=== PATIENT | female | born 1990 | race Caucasian/White ===

== ENCOUNTER 2018-10-01 12:23 | Observation (INO) | payer OTHER ==
[2018-10-01 12:34] VITALS: BMI 29.2
[2018-10-01 13:24] LABS: BASO % 0.3 % (0-2.0); EOS % 0.2 % (0-4.5); HEMATOCRIT 34.4 % (32.4-45.2); HEMOGLOBIN 11.4 GM/dL (10.7-15.3); MCH 25.7 pg (25.7-33.7); MCHC 33.1 g/dl (32.0-36.0); MEAN CELL VOLUME 77.8 fl (80-96); MEAN PLT VOLUME 11.3 fl (7.5-11.1); NEUT % 91.5 % (42.8-82.8); PLATELET COUNT 282 K/MM3 (134-434); RBC 4.42 M/mm3 (3.60-5.2); RDW 19.3 % (11.6-15.6); WHITE BLOOD COUNT 11.4 K/mm3 (4.0-10.0)
--- NOTE | 2018-10-01 13:29 | PDOC ---
History of Present Illness - General Chief Complaint: Nausea/Vomiting Stated Complaint: VOMITTING/ABDOMINAL PAIN Time Seen by Provider: 10/01/18 12:58 History Source: Patient Exam Limitations: No Limitations - History of Present Illness Initial Comments: 10/01/18 15:39 27 yo F with a hx of GERD and gastric sleeve in 2016 presents to the emergency department with sudden onset of nausea and vomiting that awoke the patient. Per the patient, she states she ate a pork quesadilla with one glass of bourbon last night at approximately 8pm. The patient went to bed without symptoms. Currently, she is having epigastric pain that radiates throughout the abdomen with associative nausea and vomiting (NBNB, 12+ episodes). The pain is dull and is 10/10. Endorses the following: diarrhea and fever. LMP was last week. Denies the following: headache, visual changes, ears/nose/throat pain and congestion, dysuria, hematuria, vaginal pain/discharge/bleeding, diarrhea, hematochezia, and melena. No leg pain or swelling. PMHX: GERD Shx: gastric sleeve 2016, appendectomy 2017 Meds: none Social: Denies tobacco use. Endorses alcohol and marijuana use. Past History - Past Medical History Allergies/Adverse Reactions: Allergies Allergy/AdvReac Type Severity Reaction Status Date / Time No Known Allergies Allergy Verified 10/01/18 12:31 Home Medications: Ambulatory Orders NK [No Known Home Medication] 10/01/18 COPD: No - Surgical History Appendectomy: Yes Gastric Stapling: Yes (sleeve) - Suicide/Smoking/Psychosocial Hx Smoking History: Never smoked Have you smoked in the past 12 months: No Information on smoking cessation initiated: No Hx Alcohol Use: No Drug/Substance Use Hx: No Review of Systems - Review of Systems Able to Perform ROS?: Yes Is the patient limited Uzbek proficient: No Constitutional: Yes: Fever, Weakness HEENTM: No: Eye Pain, Recent change in vision, Ear Pain, Nose Pain, Throat Pain , Mouth Pain Respiratory: No: Cough, Shortness of Breath, SOB with Exertion, Hemoptysis Cardiac (ROS): No: Chest Pain, Lightheadedness, Palpitations, Syncope, Chest Tightness ABD/GI: Yes: Diarrhea, Nausea, Poor Appetite, Poor Fluid Intake, Vomiting, Abdominal cramping. No: Constipated, Rectal Bleeding, Indigestion, Tarry Stools : No: Burning, Dysuria, Hematuria, Urgency Musculoskeletal: No: Back Pain, Joint Pain, Neck Pain Integumentary: No: Erythema, Lesions, Rash, Sweating Neurological: No: Headache, Numbness, Tingling, Tremors, Dizziness Psychiatric: No: Stressors Endocrine: No: Unexplained Weight Gain Hematologic/Lymphatic: No: Anemia *Physical Exam - Vital Signs Last Vital Signs Temp Pulse Resp BP Pulse Ox 98.1 F 66 18 113/53 L 100 10/01/18 12:31 10/01/18 12:31 10/01/18 12:31 10/01/18 12:31 10/01/18 12:31 - Physical Exam General Appearance: Yes: Nourished, Appropriately Dressed, Mild Distress, Other (actively vomiting and retching on exam). No: Alcohol on Breath, Intoxicated HEENT: positive: EOMI, TUNDE, Normal Voice, Symmetrical, Pharyngeal Erythema, Hearing Grossly Normal. negative: Pharynx Normal, Scleral Icterus (R), Scleral Icterus (L), Tonsillar Exudate, Tonsillar Erythema, Nasal Congestion, Sinus Tenderness, Excessive drooling Neck: positive: Trachea midline. negative: Tender, Lymphadenopathy (R), Lymphadenopathy (L), Tender lateral, Tender midline Respiratory/Chest: positive: Lungs Clear, Normal Breath Sounds. negative: Chest Tender, Respiratory Distress, Accessory Muscle Use, Rales, Rhonchi, Stridor, Wheezing Cardiovascular: positive: Regular Rhythm, Regular Rate, S1, S2, Systolic Murmur (grade 1) Gastrointestinal/Abdominal: positive: Tender (LUQ and epigastric pain on tenderness), Flat, Soft, Increased Bowel Sounds. negative: Guarding Lymphatic: negative: Adenopathy Musculoskeletal: positive: Normal Inspection. negative: CVA Tenderness, Vertebral Tenderness Extremity: positive: Normal Capillary Refill, Normal Inspection, Normal Range of Motion. negative: Tender Integumentary: positive: Normal Color, Dry, Warm Neurologic: positive: lace sewer II-XII NML intact, Fully Oriented, Alert, Normal Mood/ Affect, Normal Response, Motor Strength 5/5. negative: EOM Palsy, Sensory Deficit Moderate Sedation - Procedure Monitoring Vital Signs: Procedure Monitoring Vital Signs Temperature 98.1 F 10/01/18 12:31 Pulse Rate 66 10/01/18 12:31 Respiratory Rate 18 10/01/18 12:31 Blood Pressure 113/53 L 10/01/18 12:31 O2 Sat by Pulse Oximetry (%) 100 10/01/18 12:31 Heart Score/ECG Review - ECG Intrepretation Comment:: 10/01/18 19:12 ventricular rate 53 bpm, WA is 140 ms, QRS is 84, QTc is 459 ms. Sinus arrhythmia bradycardia. No st elevations or depressions, ED Treatment Course - LABORATORY CBC & Chemistry Diagram: 10/01/18 13:15 10/01/18 13:15 Medical Decision Making - Medical Decision Making 27 yo F with a hx of GERD and gastric sleeve in 2016 presents to the emergency department with sudden onset of nausea and vomiting that awoke the patient. Initial vitals: Initial Vital Signs Temp Pulse Resp BP Pulse Ox 98.1 F 66 18 113/53 L 100 10/01/18 12:31 10/01/18 12:31 10/01/18 12:31 10/01/18 12:31 10/01/18 12:31 Work up: ddx: gastric sleeve complications (bowel obstruction, mechanical obstruction due to adhesions?) vs gastritis vs GERD vs viral gastroenteritis vs colitis vs pancreatitis vs cholecystits Laboratory Tests 10/01/18 10/01/18 10/01/18 13:06 13:06 13:15 WBC 11.4 H RBC 4.42 Hgb 11.4 Hct 34.4 MCV 77.8 L MCH 25.7 MCHC 33.1 RDW 19.3 H Plt Count 282 MPV 11.3 H Absolute Neuts (auto) 10.4 H Neutrophils % 91.5 H Neutrophils % (Manual) 86.3 H Band Neutrophils % 3.9 Lymphocytes % 5.0 L Lymphocytes % (Manual) 4.9 L Monocytes % 3.0 L Monocytes % (Manual) 4 Eosinophils % 0.2 Eosinophils % (Manual) 0.0 Basophils % 0.3 Basophils % (Manual) 0.0 Myelocytes % (Man) 0 Promyelocytes % (Man) 0 Blast Cells % (Manual) 0 Nucleated RBC % 0 Metamyelocytes 0 Hypochromia 0 Platelet Estimate Normal Platelet Comment Present Polychromasia 1+ Poikilocytosis 1+ Anisocytosis 1+ Microcytosis 1+ Macrocytosis 0 Spherocytes 2+ Tear Drop Cells 2+ Ovalocytes 2+ Acanthocytes (Spur) 1+ Rouleaux 1+ PT with INR INR PTT (Actin FS) Sodium Potassium Chloride Carbon Dioxide Anion Gap BUN Creatinine Creat Clearance w eGFR Random Glucose Lactic Acid Calcium Phosphorus Magnesium Total Bilirubin AST ALT Alkaline Phosphatase Total Protein Albumin Lipase Urine Color Ltyellow Urine Appearance Clear Urine pH 6.0 Ur Specific [place] 1.028 Urine Protein 1+ H Urine Glucose (UA) 1+ H Urine Ketones 2+ H Urine Blood 2+ H Urine Nitrite Negative Urine Bilirubin Negative Urine Urobilinogen Negative Ur Leukocyte Esterase Negative Urine WBC (Auto) 1 Urine RBC (Auto) None Ur Epithelial Cells Rare Urine Mucus Few Urine HCG, Qual Negative Blood Type Antibody Screen 10/01/18 10/01/18 10/01/18 13:15 13:15 13:15 WBC RBC Hgb Hct MCV MCH MCHC RDW Plt Count MPV Absolute Neuts (auto) Neutrophils % Neutrophils % (Manual) Band Neutrophils % Lymphocytes % Lymphocytes % (Manual) Monocytes % Monocytes % (Manual) Eosinophils % Eosinophils % (Manual) Basophils % Basophils % (Manual) Myelocytes % (Man) Promyelocytes % (Man) Blast Cells % (Manual) Nucleated RBC % Metamyelocytes Hypochromia Platelet Estimate Platelet Comment Polychromasia Poikilocytosis Anisocytosis Microcytosis Macrocytosis Spherocytes Tear Drop Cells Ovalocytes Acanthocytes (Spur) Rouleaux PT with INR INR PTT (Actin FS) Sodium Cancelled 138 Potassium Cancelled 3.7 Chloride Cancelled 107 Carbon Dioxide Cancelled 19 L Anion Gap Cancelled 11 BUN Cancelled 15 Creatinine Cancelled 0.9 Creat Clearance w eGFR Cancelled > 60 Random Glucose Cancelled 127 H Lactic Acid Calcium Cancelled 8.9 Phosphorus 1.8 L Magnesium Cancelled 2.0 Total Bilirubin Cancelled 0.5 AST Cancelled 20 ALT Cancelled 18 Alkaline Phosphatase Cancelled 69 Total Protein Cancelled 7.9 Albumin Cancelled 3.8 Lipase Cancelled 146 Urine Color Urine Appearance Urine pH Ur Specific [place] Urine Protein Urine Glucose (UA) Urine Ketones Urine Blood Urine Nitrite Urine Bilirubin Urine Urobilinogen Ur Leukocyte Esterase Urine WBC (Auto) Urine RBC (Auto) Ur Epithelial Cells Urine Mucus Urine HCG, Qual Blood Type Antibody Screen 10/01/18 10/01/18 10/01/18 14:15 14:15 14:15 WBC RBC Hgb Hct MCV MCH MCHC RDW Plt Count MPV Absolute Neuts (auto) Neutrophils % Neutrophils % (Manual) Band Neutrophils % Lymphocytes % Lymphocytes % (Manual) Monocytes % Monocytes % (Manual) Eosinophils % Eosinophils % (Manual) Basophils % Basophils % (Manual) Myelocytes % (Man) Promyelocytes % (Man) Blast Cells % (Manual) Nucleated RBC % Metamyelocytes Hypochromia Platelet Estimate Platelet Comment Polychromasia Poikilocytosis Anisocytosis Microcytosis Macrocytosis Spherocytes Tear Drop Cells Ovalocytes Acanthocytes (Spur) Rouleaux PT with INR 13.10 H INR 1.11 H PTT (Actin FS) 25.7 Sodium Potassium Chloride Carbon Dioxide Anion Gap BUN Creatinine Creat Clearance w eGFR Random Glucose Lactic Acid 1.6 Calcium Phosphorus Magnesium Total Bilirubin AST ALT Alkaline Phosphatase Total Protein Albumin Lipase Urine Color Urine Appearance Urine pH Ur Specific [place] Urine Protein Urine Glucose (UA) Urine Ketones Urine Blood Urine Nitrite Urine Bilirubin Urine Urobilinogen Ur Leukocyte Esterase Urine WBC (Auto) Urine RBC (Auto) Ur Epithelial Cells Urine Mucus Urine HCG, Qual Blood Type O POSITIVE Antibody Screen Negative CT abdomen and pelvis shows no evidence of acute abdominopelvic pathology. nonobstructive nephrolithiasis (negative CVA tenderness on exam) noted on the upper pole of the right kidney. post surgical changes noted with no evidence of bowel obstruction or perforation. No oral contrast because patient could not tolerate PO. 10/01/18 19:05 Patient was reassessed at 6:50 pm. After 1 mg of ativan, 2.5 mg of haldol, 4 mg of zofran x2, 1 gram of acetaminophen, and NS fluids, the patient still has intractable nausea and vomiting the water on PO challenge with continued, but improved abdominal pain. Now described the pain as 4/10. Will admit patient to obs for intractable N/V with abdominal pain. *DC/Admit/Observation/Transfer Diagnosis at time of Disposition: Nausea and vomiting Qualifiers: Vomiting type: unspecified Vomiting Intractability: intractable Qualified Code( s): R11.2 - Nausea with vomiting, unspecified - Referrals - Patient Instructions - Post Discharge Activity
[2018-10-01] MEDS ORDERED: ACETAMINOPHEN 1000 MG/100 ML VIAL (NON FORMULARY) IVPB ONE (13:30)
[2018-10-01] MEDS ORDERED: ONDANSETRON 4 MG/2 ML VIAL IVPUSH ONE ×2 (13:30→15:36)
[2018-10-01] MEDS ORDERED: FAMOTIDINE 20 MG/50 ML IVPB 20 MG/50 ML MG IVPB ONE ×2 (13:30→13:33)
[2018-10-01] MEDS ORDERED: SODIUM CHLORIDE 1,000 ML IV STA ×2 (13:30→20:23)
[2018-10-01] MEDS ORDERED: ONDANSETRON 4 MG/2 ML VIAL ONE ×3 (13:33→23:13)
[2018-10-01] MEDS ORDERED: ACETAMINOPHEN INJECTION 100 ML IVPB ONE (13:33)
[2018-10-01 14:06] LABS: ALBUMIN 3.8 g/dl (3.4-5.0); ALK PHOS 69 U/L (45-117); ANION GAP 11 MMOL/L (8-16); BILIRUBIN,TOTAL 0.5 mg/dL (0.2-1); BLOOD UREA NITROGEN 15 mg/dL (7-18); CALCIUM 8.9 mg/dL (8.5-10.1); CHLORIDE 107 mmol/L (98-107); CO2 19 mmol/L (21-32); CREATININE 0.9 mg/dL (0.55-1.3); GLUCOSE,RANDOM 127 mg/dL (74-106); LIPASE 146 U/L (73-393); PHOSPHOROUS 1.8 mg/dL (2.5-4.9); POTASSIUM 3.7 mmol/L (3.5-5.1); SGOT/AST 20 U/L (15-37); SGPT/ALT 18 U/L (13-61); SODIUM 138 mmol/L (136-145); TOT PROT 7.9 g/dl (6.4-8.2)
[2018-10-01 14:48] LABS: INR 1.11 (0.83-1.09); PROTHROMBIN TIME (PATIENT) 13.1 SEC (9.7-13.0)
[2018-10-01 14:50] LABS: ACTIVATED PTT 25.7 SECONDS (25.2-36.5)
[2018-10-01 15:06] LABS: ACANTHOCYTES 1+; ANISOCYTOSIS 1+; MACROCYTOSIS 0; OVALOCYTE 2+; PLATELET ESTIMATE NORMAL; ROULEAU 1+; TEAR DROP CELLS 2+
[2018-10-01 15:32] LABS: URINE APPEARANCE CLEAR; URINE BILIRUBIN NEGATIVE (<2.0 mg/dL); URINE COLOR LTYELLOW; URINE GLUCOSE (UA) 1+ (NEGATIVE); URINE KETONE 2+ (NEGATIVE); URINE LEUK ESTERASE NEGATIVE (NEGATIVE); URINE NITRITE NEGATIVE (NEGATIVE); URINE PROTEIN 1+ (NEGATIVE); URINE UROBILINOGEN NEGATIVE mg/dL (0.2-1.0)
[2018-10-01] MEDS ORDERED: HALOPERIDOL LACTATE 5 MG/ML IM ONE (15:36)
--- NOTE | 2018-10-01 15:38 | EKG ---
Test Reason : Blood Pressure : / mmHG Vent. Rate : 053 BPM Atrial Rate : 053 BPM P-R Int : 140 ms QRS Dur : 084 ms QT Int : 490 ms P-R-T Axes : 034 036 043 degrees QTc Int : 459 ms SINUS BRADYCARDIA WITH SINUS ARRHYTHMIA OTHERWISE NORMAL ECG NO PREVIOUS ECGS AVAILABLE Confirmed by SHAREE SPENCER, CARO ([id number]) on 10/01/2018 3:38:38 PM Referred By: Confirmed By:CARO TOLLIVER MD
[2018-10-01] MEDS ORDERED: HALOPERIDOL LACTATE 5 MG/ML ONE (15:50)
[2018-10-01 16:13] LABS: EPI CELLS RARE /HPF (FEW); URINE MUCUS FEW
[2018-10-01] MEDS ORDERED: LORazepam 2 MG/ML SDV VIAL ONE (16:17)
--- NOTE | 2018-10-01 16:33 | PDOC ---
Attending Attestation - Resident Resident Name: Krystian Khoury - ED Attending Attestation I have performed the following: I have examined & evaluated the patient, The case was reviewed & discussed with the resident, I agree w/resident's findings & plan, Exceptions are as noted - HPI HPI: 10/01/18 16:31 27 F with h/o sleeve gastrectomy 2016 presenting with 1 day of abdominal pain and nausea. Pt states that she had an alcoholic drink last night with pork quesadillas. This morning, pt started experiencing severe epigastric pain with several episodes of N+V. Pt denies F/C. Denies diarrhea/constipation. last BM was 2 hours ago, normal. Pt has not had symptoms like this before. - Physicial Exam PE: 10/01/18 16:32 "GENERAL: Awake, alert, and fully oriented, in no acute distress. HEAD: No signs of trauma EYES: PERRLA, EOMI, sclera anicteric, conjunctiva clear ENT: Auricles normal inspection, hearing grossly normal, nares patent, oropharynx clear without exudates. Moist mucosa NECK: Nontender, no stepoffs, Normal ROM, supple, no lymphadenopathy, JVD, or masses LUNGS: Breath sounds equal, clear to auscultation bilaterally. No wheezes, and no crackles HEART: Regular rate and rhythm, normal S1 and S2, no murmurs, rubs or gallops ABDOMEN: + epigastric TTP, nondistended, normoactive bowel sounds. No guarding , no rebound. No masses EXTREMITIES: Normal range of motion, no edema. No clubbing or cyanosis. No cords, erythema, or tenderness NEUROLOGICAL: Cranial nerves II through XII intact. 5/5 strength and sensation in all extremities, Normal speech, normal gait, normal cerebellar function SKIN: Warm, Dry, normal turgor, no rashes or lesions noted. - Medical Decision Making 10/01/18 16:32 27 F with epigastric pain, N+V. No sign of obstruction on exam. Suspect gastritis vs pancreatitis. Consider complication from sleeve gastrectomy, though surgery was in 2016. Pt also admits to smoking marijuana occasionally, consider cannabanoid hyperemesis syndrome. - Labs, lipase - CTAP - IVF, gi cocktail
--- NOTE | 2018-10-01 19:54 | PDOC ---
*Physical Exam - Vital Signs Last Vital Signs Temp Pulse Resp BP Pulse Ox 98.1 F 79 17 105/65 98 10/01/18 12:31 10/01/18 16:39 10/01/18 16:39 10/01/18 16:39 10/01/18 16:39 ED Treatment Course - LABORATORY CBC & Chemistry Diagram: 10/01/18 13:15 10/01/18 13:15 - ADDITIONAL ORDERS Additional order review: Laboratory Results 10/01/18 10/01/18 10/01/18 14:15 14:15 14:15 PT with INR 13.10 H INR 1.11 H PTT (Actin FS) 25.7 Sodium Potassium Chloride Carbon Dioxide Anion Gap BUN Creatinine Creat Clearance w eGFR Random Glucose Lactic Acid 1.6 Calcium Phosphorus Magnesium Total Bilirubin AST ALT Alkaline Phosphatase Total Protein Albumin Lipase Urine Color Urine Appearance Urine pH Ur Specific [place] Urine Protein Urine Glucose (UA) Urine Ketones Urine Blood Urine Nitrite Urine Bilirubin Urine Urobilinogen Ur Leukocyte Esterase Urine WBC (Auto) Urine RBC (Auto) Ur Epithelial Cells Urine Mucus Urine HCG, Qual Blood Type O POSITIVE Antibody Screen Negative 10/01/18 10/01/18 10/01/18 13:15 13:15 13:15 PT with INR INR PTT (Actin FS) Sodium 138 Cancelled Potassium 3.7 Cancelled Chloride 107 Cancelled Carbon Dioxide 19 L Cancelled Anion Gap 11 Cancelled BUN 15 Cancelled Creatinine 0.9 Cancelled Creat Clearance w eGFR > 60 Cancelled Random Glucose 127 H Cancelled Lactic Acid Calcium 8.9 Cancelled Phosphorus 1.8 L Magnesium 2.0 Cancelled Total Bilirubin 0.5 Cancelled AST 20 Cancelled ALT 18 Cancelled Alkaline Phosphatase 69 Cancelled Total Protein 7.9 Cancelled Albumin 3.8 Cancelled Lipase 146 Cancelled Urine Color Urine Appearance Urine pH Ur Specific [place] Urine Protein Urine Glucose (UA) Urine Ketones Urine Blood Urine Nitrite Urine Bilirubin Urine Urobilinogen Ur Leukocyte Esterase Urine WBC (Auto) Urine RBC (Auto) Ur Epithelial Cells Urine Mucus Urine HCG, Qual Blood Type Antibody Screen 10/01/18 10/01/18 13:06 13:06 PT with INR INR PTT (Actin FS) Sodium Potassium Chloride Carbon Dioxide Anion Gap BUN Creatinine Creat Clearance w eGFR Random Glucose Lactic Acid Calcium Phosphorus Magnesium Total Bilirubin AST ALT Alkaline Phosphatase Total Protein Albumin Lipase Urine Color Ltyellow Urine Appearance Clear Urine pH 6.0 Ur Specific [place] 1.028 Urine Protein 1+ H Urine Glucose (UA) 1+ H Urine Ketones 2+ H Urine Blood 2+ H Urine Nitrite Negative Urine Bilirubin Negative Urine Urobilinogen Negative Ur Leukocyte Esterase Negative Urine WBC (Auto) 1 Urine RBC (Auto) None Ur Epithelial Cells Rare Urine Mucus Few Urine HCG, Qual Negative Blood Type Antibody Screen 10/01/18 13:15 RBC 4.42 MCV 77.8 L MCHC 33.1 RDW 19.3 H MPV 11.3 H Neutrophils % 91.5 H Lymphocytes % 5.0 L Monocytes % 3.0 L Eosinophils % 0.2 Basophils % 0.3 - Medications Given in the ED: ED Medications Discontinued Medications Generic Name Dose Route Start Last Admin Trade Name Freq PRN Reason Stop Dose Admin Acetaminophen 1,000 mg 10/01/18 13:30 10/01/18 13:42 Ofirmev Injection - IVPB 10/01/18 13:31 1,000 mg ONCE ONE Administration Haloperidol 2.5 mg 10/01/18 15:36 10/01/18 15:57 Haldol Injection (Fast Acting) - IM 10/01/18 15:37 2.5 mg ONCE ONE Administration Famotidine/Sodium Chloride 20 mg in 50 mls @ 100 mls/hr 10/01/18 13:30 13:42 Pepcid 20 Mg Premixed Ivpb - IVPB 10/01/18 13:59 100 mls/hr ONCE ONE Administration Sodium Chloride 1,000 mls @ 1,000 mls/hr 10/01/18 13:30 10/01/18 13:41 Normal Saline - IV 10/01/18 14:29 1,000 mls/hr ASDIR STA Administration Lorazepam 1 mg 10/01/18 16:17 10/01/18 16:24 Ativan Injection - IVPUSH 10/01/18 16:18 1 mg ONCE ONE Administration Ondansetron HCl 4 mg 10/01/18 13:30 10/01/18 13:42 Zofran Injection IVPUSH 10/01/18 13:31 4 mg ONCE ONE Administration Ondansetron HCl 4 mg 10/01/18 15:36 10/01/18 15:57 Zofran Injection IVPUSH 10/01/18 15:37 4 mg ONCE ONE Administration Medical Decision Making - Medical Decision Making 10/01/18 19:53 Case d/w Dr Acosta Murphy. Accepted to med surg obs. *DC/Admit/Observation/Transfer Diagnosis at time of Disposition: Nausea and vomiting Qualifiers: Vomiting type: unspecified Vomiting Intractability: intractable Qualified Code( s): R11.2 - Nausea with vomiting, unspecified - Discharge Dispostion Condition at time of disposition: Decision to Admit order: Yes - Referrals - Patient Instructions - Post Discharge Activity
--- NOTE | 2018-10-01 20:05 | PN ---
Teaching Attending Note Name of Resident: Acosta Murphy ATTENDING PHYSICIAN STATEMENT I saw and evaluated the patient. I reviewed the resident's note and discussed the case with the resident. I agree with the resident's findings and plan as documented. SUBJECTIVE: Patient is a 27 year old woman with a hx of GERD, appendectomy and gastric sleeve in 2016 presents to the emergency department with sudden onset of nausea and vomiting that awoke the patient. Per the patient, she states she ate a pork quesadilla with one glass of bourbon last night at approximately 8pm. The patient went to bed without symptoms. Currently, she is having epigastric pain that radiates throughout the abdomen with associative nausea and vomiting (NBNB , 12+ episodes). The pain is dull and is 10/10. Endorses the following: diarrhea and fever. LMP was last week. Denies the following: headache, visual changes, ears/nose/throat pain and congestion, dysuria, hematuria, vaginal pain/ discharge/bleeding, diarrhea, hematochezia, and melena. No leg pain or swelling. OBJECTIVE: Somnolent but arousable Vital Signs Period Temp Pulse Resp BP Sys/Johns Pulse Ox Last 24 Hr 98.1 F 66-79 17-18 105-113/53-65 98-100 HEENT: No Jaundice, eye redness or discharge, PERRLA, EOMI. Normocephalic, atraumatic. External ears are normal and hearing is grossly intact. No nasal discharge. Neck: Supple, nontender. No palpable adenopathy or thyromegaly. No JVD Chest: Good effort. Clear to auscultation and percussion. Heart: Regular. No S3, rub or murmur Abdomen: Not distended, soft, tender upper abdomen and no HSM. No rebound or guarding. Normoactive bowel sounds. Ext: Peripheral pulses intact. No leg edema. Skin: Warm and dry. No petechiae, rash or ecchymosis. Neuro: Somnolent. Oriented x3. CN 2-12 grossly intact. Sensation grossly intact in all four extremities and DTR are symmetric. Current Medications Generic Name Dose Route Start Last Admin Trade Name Freq PRN Reason Stop Dose Admin Sodium Chloride 1,000 mls @ 1,000 mls/hr 10/01/18 20:23 Normal Saline - IV 10/01/18 21:22 ASDIR STA Home Medications Medication Instructions Recorded NK [No Known Home Medication] 10/01/18 Abnormal Lab Results 10/01/18 10/01/18 10/01/18 13:06 13:15 13:15 WBC 11.4 H MCV 77.8 L RDW 19.3 H MPV 11.3 H Absolute Neuts (auto) 10.4 H Neutrophils % 91.5 H Neutrophils % (Manual) 86.3 H Lymphocytes % 5.0 L Lymphocytes % (Manual) 4.9 L Monocytes % 3.0 L PT with INR INR Carbon Dioxide 19 L Random Glucose 127 H Phosphorus 1.8 L Urine Protein 1+ H Urine Glucose (UA) 1+ H Urine Ketones 2+ H Urine Blood 2+ H 10/01/18 14:15 WBC MCV RDW MPV Absolute Neuts (auto) Neutrophils % Neutrophils % (Manual) Lymphocytes % Lymphocytes % (Manual) Monocytes % PT with INR 13.10 H INR 1.11 H Carbon Dioxide Random Glucose Phosphorus Urine Protein Urine Glucose (UA) Urine Ketones Urine Blood ASSESSMENT AND PLAN: 1. Abdominal pain and intractable vomiting - Admits to smoking marijuana, but unclear if she used synthetic marijuana. No significant abnormality on CT abdomen. Alcoholic gastritis is the other possible culprit. She has starvation ketosis. Got one liter bolus IV NS. Will give another I liter bolus and then D5NS at 150/hour. Treat with IV zofran, protonix and if necessary reglan. Get serum test, EKG, HbA1c, urine toxicology and give neutraphos once she can tolerate PO. Repeat UA once she is stable in view of hematuria. Patient counseled to stop smoking marijuana. 2. Alcohol abuse - Implement [facility] alcohol withdrawal protocol, fall and aspiration precautions. Treat with thiamine and folic acid and monitor electrolytes (Ca,Mg,K,P). In Service Coordinator patient about abstaining from alcohol and refer to alcohol detox upon discharge. 3. DVT prophylaxis - Lovenox 40 mg SQ q 24 hours. 4. Advance directives - Full code
[2018-10-01] MEDS ORDERED: ONDANSETRON 4 MG/2 ML VIAL IVPUSH PRN (21:13)
--- NOTE | 2018-10-01 21:14 | HP ---
CHIEF COMPLAINT: vomiting PCP: n/a HISTORY OF PRESENT ILLNESS: Patient is a 27yo F with pmhx of GERD, s/p gastric sleeve 2015, presented with complaints of sudden nausea and NBNB vomiting that woke her up at 6am this morning with associated 10/10, cramping, diffuse abdominal pain. She said last night she had 1 cup of bourbon on the rocks. Her last meal was last night which she had pork quesadillas. Patient currently has no abdominal pain but still endorses nausea and vomiting over 15 times. She denies fever, diarrhea, headache, chills, hematochezia, dysuria, or weight changes. ER course was notable for: (1) intractable vomiting in ED (2) 1mg Ativan, 2.5mg Haldol, Zofran x 2 (3) CT abd: unremarkable Recent Travel: n/a PAST MEDICAL HISTORY: per hpi PAST SURGICAL HISTORY: per hpi Social History: Smoking: marijuana, denies tobacco Alcohol: occasionally Drugs: denies (except marijuana) Family History: n/a Allergies No Known Allergies Allergy (Verified 10/01/18 12:31) HOME MEDICATIONS: Home Medications Medication Instructions Recorded NK [No Known Home Medication] 10/01/18 REVIEW OF SYSTEMS CONSTITUTIONAL: loss of appetite Absent: fever, chills, diaphoresis, generalized weakness, malaise, weight change HEENT: Absent: rhinorrhea, nasal congestion, throat pain, throat swelling, difficulty swallowing, mouth swelling, ear pain, eye pain, visual changes CARDIOVASCULAR: Absent: chest pain, syncope, palpitations, irregular heart rate, lightheadedness , peripheral edema RESPIRATORY: Absent: cough, shortness of breath, dyspnea with exertion, orthopnea, wheezing, stridor, hemoptysis GASTROINTESTINAL: abdominal pain, nausea, vomiting Absent: abdominal distension, diarrhea, constipation, melena, hematochezia GENITOURINARY: Absent: dysuria, frequency, urgency, hesitancy, hematuria, flank pain, genital pain MUSCULOSKELETAL: Absent: myalgia, arthralgia, joint swelling, back pain, neck pain SKIN: Absent: rash, itching, pallor HEMATOLOGIC/IMMUNOLOGIC: Absent: easy bleeding, easy bruising, lymphadenopathy, frequent infections ENDOCRINE: Absent: unexplained weight gain, unexplained weight loss, heat intolerance, cold intolerance NEUROLOGIC: Absent: headache, focal weakness or paresthesias, dizziness, unsteady gait, seizure, mental status changes, bladder or bowel incontinence PSYCHIATRIC: Absent: anxiety, depression, suicidal or homicidal ideation, hallucinations. PHYSICAL EXAMINATION Vital Signs - 24 hr 10/01/18 10/01/18 12:31 16:39 Temperature 98.1 F Pulse Rate 66 Pulse Rate [ 79 Apical] Respiratory 18 17 Rate Blood Pressure 113/53 L Blood Pressure 105/65 [Right Arm] O2 Sat by Pulse 100 98 Oximetry (%) GENERAL: lethargic (given ativan, haldol) HEAD: Normal with no signs of trauma. EYES: Pupils equal, round and reactive to light, sclera anicteric, conjunctiva clear. EARS, NOSE, THROAT: Ears normal, nares patent, oropharynx clear without exudates. dry mucous membranes. NECK: supple without lymphadenopathy, JVD, or masses. LUNGS: Breath sounds equal, clear to auscultation bilaterally. HEART: Regular rate and rhythm, normal S1 and S2 without murmur, rub or gallop. ABDOMEN: Soft, nontender, not distended, hypoactive bowel sounds, no guarding, no rebound, no masses. LOWER EXTREMITIES: 2+ pulses, warm, well-perfused. No calf tenderness. No peripheral edema. NEUROLOGICAL: Cranial nerves II-XII intact. Normal speech. Laboratory Results - last 24 hr 10/01/18 10/01/18 10/01/18 13:06 13:06 13:15 WBC 11.4 H RBC 4.42 Hgb 11.4 Hct 34.4 MCV 77.8 L MCH 25.7 MCHC 33.1 RDW 19.3 H Plt Count 282 MPV 11.3 H Absolute Neuts (auto) 10.4 H Neutrophils % 91.5 H Neutrophils % (Manual) 86.3 H Band Neutrophils % 3.9 Lymphocytes % 5.0 L Lymphocytes % (Manual) 4.9 L Monocytes % 3.0 L Monocytes % (Manual) 4 Eosinophils % 0.2 Eosinophils % (Manual) 0.0 Basophils % 0.3 Basophils % (Manual) 0.0 Myelocytes % (Man) 0 Promyelocytes % (Man) 0 Blast Cells % (Manual) 0 Nucleated RBC % 0 Metamyelocytes 0 Hypochromia 0 Platelet Estimate Normal Platelet Comment Present Polychromasia 1+ Poikilocytosis 1+ Anisocytosis 1+ Microcytosis 1+ Macrocytosis 0 Spherocytes 2+ Tear Drop Cells 2+ Ovalocytes 2+ Acanthocytes (Spur) 1+ Rouleaux 1+ PT with INR INR PTT (Actin FS) Sodium Potassium Chloride Carbon Dioxide Anion Gap BUN Creatinine Creat Clearance w eGFR Random Glucose Lactic Acid Calcium Phosphorus Magnesium Total Bilirubin AST ALT Alkaline Phosphatase Total Protein Albumin Lipase Urine Color Ltyellow Urine Appearance Clear Urine pH 6.0 Ur Specific [place] 1.028 Urine Protein 1+ H Urine Glucose (UA) 1+ H Urine Ketones 2+ H Urine Blood 2+ H Urine Nitrite Negative Urine Bilirubin Negative Urine Urobilinogen Negative Ur Leukocyte Esterase Negative Urine WBC (Auto) 1 Urine RBC (Auto) None Ur Epithelial Cells Rare Urine Mucus Few Urine HCG, Qual Negative Blood Type Antibody Screen 10/01/18 10/01/18 10/01/18 13:15 13:15 13:15 WBC RBC Hgb Hct MCV MCH MCHC RDW Plt Count MPV Absolute Neuts (auto) Neutrophils % Neutrophils % (Manual) Band Neutrophils % Lymphocytes % Lymphocytes % (Manual) Monocytes % Monocytes % (Manual) Eosinophils % Eosinophils % (Manual) Basophils % Basophils % (Manual) Myelocytes % (Man) Promyelocytes % (Man) Blast Cells % (Manual) Nucleated RBC % Metamyelocytes Hypochromia Platelet Estimate Platelet Comment Polychromasia Poikilocytosis Anisocytosis Microcytosis Macrocytosis Spherocytes Tear Drop Cells Ovalocytes Acanthocytes (Spur) Rouleaux PT with INR INR PTT (Actin FS) Sodium Cancelled 138 Potassium Cancelled 3.7 Chloride Cancelled 107 Carbon Dioxide Cancelled 19 L Anion Gap Cancelled 11 BUN Cancelled 15 Creatinine Cancelled 0.9 Creat Clearance w eGFR Cancelled > 60 Random Glucose Cancelled 127 H Lactic Acid Calcium Cancelled 8.9 Phosphorus 1.8 L Magnesium Cancelled 2.0 Total Bilirubin Cancelled 0.5 AST Cancelled 20 ALT Cancelled 18 Alkaline Phosphatase Cancelled 69 Total Protein Cancelled 7.9 Albumin Cancelled 3.8 Lipase Cancelled 146 Urine Color Urine Appearance Urine pH Ur Specific [place] Urine Protein Urine Glucose (UA) Urine Ketones Urine Blood Urine Nitrite Urine Bilirubin Urine Urobilinogen Ur Leukocyte Esterase Urine WBC (Auto) Urine RBC (Auto) Ur Epithelial Cells Urine Mucus Urine HCG, Qual Blood Type Antibody Screen 10/01/18 10/01/18 10/01/18 14:15 14:15 14:15 WBC RBC Hgb Hct MCV MCH MCHC RDW Plt Count MPV Absolute Neuts (auto) Neutrophils % Neutrophils % (Manual) Band Neutrophils % Lymphocytes % Lymphocytes % (Manual) Monocytes % Monocytes % (Manual) Eosinophils % Eosinophils % (Manual) Basophils % Basophils % (Manual) Myelocytes % (Man) Promyelocytes % (Man) Blast Cells % (Manual) Nucleated RBC % Metamyelocytes Hypochromia Platelet Estimate Platelet Comment Polychromasia Poikilocytosis Anisocytosis Microcytosis Macrocytosis Spherocytes Tear Drop Cells Ovalocytes Acanthocytes (Spur) Rouleaux PT with INR 13.10 H INR 1.11 H PTT (Actin FS) 25.7 Sodium Potassium Chloride Carbon Dioxide Anion Gap BUN Creatinine Creat Clearance w eGFR Random Glucose Lactic Acid 1.6 Calcium Phosphorus Magnesium Total Bilirubin AST ALT Alkaline Phosphatase Total Protein Albumin Lipase Urine Color Urine Appearance Urine pH Ur Specific [place] Urine Protein Urine Glucose (UA) Urine Ketones Urine Blood Urine Nitrite Urine Bilirubin Urine Urobilinogen Ur Leukocyte Esterase Urine WBC (Auto) Urine RBC (Auto) Ur Epithelial Cells Urine Mucus Urine HCG, Qual Blood Type O POSITIVE Antibody Screen Negative ASSESSMENT/PLAN: 7yo F with pmhx of GERD, s/p gastric sleeve 2015, presented with intractable NBNB vomiting. #Intractable Vomiting -marijuana use vs gastroenteritis -IV fluids. 1 liter given in ER -Give another Liter bolus NS, then D5 @ 150 -serum -No significant abnormality on CT abdomen -Zofran PRN #FEN -IV fluids -monitor -NPO #DVT -SCDs Dispo: Obs Visit type - Emergency Visit Emergency Visit: Yes ED Registration Date: 10/01/18 Care time: The patient presented to the Emergency Department on the above date and was hospitalized for further evaluation of their emergent condition. - New Patient This patient is new to me today: Yes Date on this admission: 10/02/18 - Critical Care Critical Care patient: No
[2018-10-01 22:11] LABS: COCAINE, UR NEGATIVE ng/ml (CUTOFF=300); METHADONE, UR NEGATIVE ng/ml (CUTOFF=300); OPIATES, URI NEGATIVE ng/ml (CUTOFF=300); PHENCYCLIDINE,URINE NEGATIVE ng/ml (CUTOFF=25); URINE AMPHETAMINES NEGATIVE ng/ml (CUTOFF=500); URINE BARBITURATES NEGATIVE ng/ml (CUTOFF=200); URINE BENZODIAZEPINES NEGATIVE ng/ml (CUTOFF=200)
[2018-10-02 07:14] LABS: BASO % 0.4 % (0-2.0); EOS % 0.1 % (0-4.5); HEMATOCRIT 31.1 % (32.4-45.2); HEMOGLOBIN 9.7 GM/dL (10.7-15.3); LYMPH % 15.5 % (8-40); MCH 24.7 pg (25.7-33.7); MCHC 31.3 g/dl (32.0-36.0); MEAN PLT VOLUME 10.8 fl (7.5-11.1); MONO % 7.2 % (3.8-10.2); NEUT % 76.8 % (42.8-82.8); PLATELET COUNT 180 K/MM3 (134-434); RBC 3.94 M/mm3 (3.60-5.2); RDW 19.3 % (11.6-15.6); WHITE BLOOD COUNT 6.5 K/mm3 (4.0-10.0)
[2018-10-02] MEDS ORDERED: DEXTROSE 5%-WATER - 1,000 ML IV SCH (07:15)
[2018-10-02 08:50] LABS: ALBUMIN 3.2 g/dl (3.4-5.0); ALK PHOS 60 U/L (45-117); ANION GAP 10 MMOL/L (8-16); BILIRUBIN,TOTAL 0.4 mg/dL (0.2-1); BLOOD UREA NITROGEN 7 mg/dL (7-18); CALCIUM 8.4 mg/dL (8.5-10.1); CHLORIDE 109 mmol/L (98-107); CO2 21 mmol/L (21-32); CREATININE 0.7 mg/dL (0.55-1.3); GLUCOSE,RANDOM 75 mg/dL (74-106); MAGNESIUM 2.1 mg/dL (1.8-2.4); PHOSPHOROUS 3.4 mg/dL (2.5-4.9); POTASSIUM 3.4 mmol/L (3.5-5.1); SGOT/AST 20 U/L (15-37); SGPT/ALT 22 U/L (13-61); SODIUM 140 mmol/L (136-145); TOT PROT 6.7 g/dl (6.4-8.2)
[2018-10-02] MEDS ORDERED: PANTOPRAZOLE SODIUM 40 MG VIAL IVPUSH SCH (10:00)
--- NOTE | 2018-10-02 10:11 | PN ---
Physical Exam: SUBJECTIVE: Patient seen and examined, no further nausea, vomiting or abdominal pain, tolerated liquid diet well this morning. OBJECTIVE: Vital Signs Period Temp Pulse Resp BP Sys/Johns Pulse Ox Last 24 Hr 97.5 F-98.5 F 63-79 16-20 92-113/44-72 96-100 GENERAL: The patient is awake, alert, and fully oriented, in no acute distress. HEAD: Normal with no signs of trauma. EYES: PERRL, extraocular movements intact, sclera anicteric, conjunctiva clear. No ptosis. ENT: Ears normal, nares patent, oropharynx clear without exudates, moist mucous membranes. NECK: Trachea midline, full range of motion, supple. LUNGS: Breath sounds equal, clear to auscultation bilaterally, no wheezes, no crackles, no accessory muscle use. HEART: Regular rate and rhythm, S1, S2 ABDOMEN: Soft, nontender, nondistended, normoactive bowel sounds, no guarding, no rebound EXTREMITIES: 2+ pulses, warm, well-perfused, no edema. PSYCH: Normal mood, normal affect. SKIN: Warm, dry, normal turgor, no rashes or lesions noted Laboratory Results - last 24 hr 10/01/18 10/01/18 10/01/18 13:06 13:06 13:15 WBC 11.4 H RBC 4.42 Hgb 11.4 Hct 34.4 MCV 77.8 L MCH 25.7 MCHC 33.1 RDW 19.3 H Plt Count 282 MPV 11.3 H Absolute Neuts (auto) 10.4 H Neutrophils % 91.5 H Neutrophils % (Manual) 86.3 H Band Neutrophils % 3.9 Lymphocytes % 5.0 L Lymphocytes % (Manual) 4.9 L Monocytes % 3.0 L Monocytes % (Manual) 4 Eosinophils % 0.2 Eosinophils % (Manual) 0.0 Basophils % 0.3 Basophils % (Manual) 0.0 Myelocytes % (Man) 0 Promyelocytes % (Man) 0 Blast Cells % (Manual) 0 Nucleated RBC % 0 Metamyelocytes 0 Hypochromia 0 Platelet Estimate Normal Platelet Comment Present Polychromasia 1+ Poikilocytosis 1+ Anisocytosis 1+ Microcytosis 1+ Macrocytosis 0 Spherocytes 2+ Tear Drop Cells 2+ Ovalocytes 2+ Acanthocytes (Spur) 1+ Rouleaux 1+ PT with INR INR PTT (Actin FS) Sodium Potassium Chloride Carbon Dioxide Anion Gap BUN Creatinine Creat Clearance w eGFR Random Glucose Lactic Acid Calcium Phosphorus Magnesium Total Bilirubin AST ALT Alkaline Phosphatase Total Protein Albumin Lipase Urine Color Ltyellow Urine Appearance Clear Urine pH 6.0 Ur Specific [place] 1.028 Urine Protein 1+ H Urine Glucose (UA) 1+ H Urine Ketones 2+ H Urine Blood 2+ H Urine Nitrite Negative Urine Bilirubin Negative Urine Urobilinogen Negative Ur Leukocyte Esterase Negative Urine WBC (Auto) 1 Urine RBC (Auto) None Ur Epithelial Cells Rare Urine Mucus Few Urine HCG, Qual Negative Opiates Screen Methadone Screen Barbiturate Screen Phencyclidine Screen Ur Amphetamines Screen MDMA (Ecstasy) Screen Benzodiazepines Screen Cocaine Screen U Marijuana (THC) Screen Blood Type Antibody Screen 10/01/18 10/01/18 10/01/18 13:15 13:15 13:15 WBC RBC Hgb Hct MCV MCH MCHC RDW Plt Count MPV Absolute Neuts (auto) Neutrophils % Neutrophils % (Manual) Band Neutrophils % Lymphocytes % Lymphocytes % (Manual) Monocytes % Monocytes % (Manual) Eosinophils % Eosinophils % (Manual) Basophils % Basophils % (Manual) Myelocytes % (Man) Promyelocytes % (Man) Blast Cells % (Manual) Nucleated RBC % Metamyelocytes Hypochromia Platelet Estimate Platelet Comment Polychromasia Poikilocytosis Anisocytosis Microcytosis Macrocytosis Spherocytes Tear Drop Cells Ovalocytes Acanthocytes (Spur) Rouleaux PT with INR INR PTT (Actin FS) Sodium Cancelled 138 Potassium Cancelled 3.7 Chloride Cancelled 107 Carbon Dioxide Cancelled 19 L Anion Gap Cancelled 11 BUN Cancelled 15 Creatinine Cancelled 0.9 Creat Clearance w eGFR Cancelled > 60 Random Glucose Cancelled 127 H Lactic Acid Calcium Cancelled 8.9 Phosphorus 1.8 L Magnesium Cancelled 2.0 Total Bilirubin Cancelled 0.5 AST Cancelled 20 ALT Cancelled 18 Alkaline Phosphatase Cancelled 69 Total Protein Cancelled 7.9 Albumin Cancelled 3.8 Lipase Cancelled 146 Urine Color Urine Appearance Urine pH Ur Specific [place] Urine Protein Urine Glucose (UA) Urine Ketones Urine Blood Urine Nitrite Urine Bilirubin Urine Urobilinogen Ur Leukocyte Esterase Urine WBC (Auto) Urine RBC (Auto) Ur Epithelial Cells Urine Mucus Urine HCG, Qual Opiates Screen Methadone Screen Barbiturate Screen Phencyclidine Screen Ur Amphetamines Screen MDMA (Ecstasy) Screen Benzodiazepines Screen Cocaine Screen U Marijuana (THC) Screen Blood Type Antibody Screen 10/01/18 10/01/18 10/01/18 14:15 14:15 14:15 WBC RBC Hgb Hct MCV MCH MCHC RDW Plt Count MPV Absolute Neuts (auto) Neutrophils % Neutrophils % (Manual) Band Neutrophils % Lymphocytes % Lymphocytes % (Manual) Monocytes % Monocytes % (Manual) Eosinophils % Eosinophils % (Manual) Basophils % Basophils % (Manual) Myelocytes % (Man) Promyelocytes % (Man) Blast Cells % (Manual) Nucleated RBC % Metamyelocytes Hypochromia Platelet Estimate Platelet Comment Polychromasia Poikilocytosis Anisocytosis Microcytosis Macrocytosis Spherocytes Tear Drop Cells Ovalocytes Acanthocytes (Spur) Rouleaux PT with INR 13.10 H INR 1.11 H PTT (Actin FS) 25.7 Sodium Potassium Chloride Carbon Dioxide Anion Gap BUN Creatinine Creat Clearance w eGFR Random Glucose Lactic Acid 1.6 Calcium Phosphorus Magnesium Total Bilirubin AST ALT Alkaline Phosphatase Total Protein Albumin Lipase Urine Color Urine Appearance Urine pH Ur Specific [place] Urine Protein Urine Glucose (UA) Urine Ketones Urine Blood Urine Nitrite Urine Bilirubin Urine Urobilinogen Ur Leukocyte Esterase Urine WBC (Auto) Urine RBC (Auto) Ur Epithelial Cells Urine Mucus Urine HCG, Qual Opiates Screen Methadone Screen Barbiturate Screen Phencyclidine Screen Ur Amphetamines Screen MDMA (Ecstasy) Screen Benzodiazepines Screen Cocaine Screen U Marijuana (THC) Screen Blood Type O POSITIVE Antibody Screen Negative 10/01/18 10/02/18 10/02/18 21:40 06:00 06:00 WBC 6.5 RBC 3.94 Hgb 9.7 L Hct 31.1 L MCV 79.0 L MCH 24.7 L MCHC 31.3 L RDW 19.3 H Plt Count 180 D MPV 10.8 Absolute Neuts (auto) 5.0 Neutrophils % 76.8 Neutrophils % (Manual) Band Neutrophils % Lymphocytes % 15.5 D Lymphocytes % (Manual) Monocytes % 7.2 D Monocytes % (Manual) Eosinophils % 0.1 Eosinophils % (Manual) Basophils % 0.4 Basophils % (Manual) Myelocytes % (Man) Promyelocytes % (Man) Blast Cells % (Manual) Nucleated RBC % 0 Metamyelocytes Hypochromia Platelet Estimate Platelet Comment Polychromasia Poikilocytosis Anisocytosis Microcytosis Macrocytosis Spherocytes Tear Drop Cells Ovalocytes Acanthocytes (Spur) Rouleaux PT with INR INR PTT (Actin FS) Sodium 140 Potassium 3.4 L Chloride 109 H Carbon Dioxide 21 Anion Gap 10 BUN 7 Creatinine 0.7 Creat Clearance w eGFR > 60 Random Glucose 75 Lactic Acid Calcium 8.4 L Phosphorus 3.4 Magnesium 2.1 Total Bilirubin 0.4 AST 20 ALT 22 Alkaline Phosphatase 60 Total Protein 6.7 Albumin 3.2 L Lipase Urine Color Urine Appearance Urine pH Ur Specific [place] Urine Protein Urine Glucose (UA) Urine Ketones Urine Blood Urine Nitrite Urine Bilirubin Urine Urobilinogen Ur Leukocyte Esterase Urine WBC (Auto) Urine RBC (Auto) Ur Epithelial Cells Urine Mucus Urine HCG, Qual Opiates Screen Negative Methadone Screen Negative Barbiturate Screen Negative Phencyclidine Screen Negative Ur Amphetamines Screen Negative MDMA (Ecstasy) Screen Negative Benzodiazepines Screen Negative Cocaine Screen Negative U Marijuana (THC) Screen Positive A* Blood Type Antibody Screen Active Medications Generic Name Dose Route Start Last Admin Trade Name Freq PRN Reason Stop Dose Admin Ondansetron HCl 4 mg 10/01/18 21:13 10/01/18 23:27 Zofran Injection IVPUSH 4 mg Q6H PRN Administration NAUSEA Pantoprazole Sodium 40 mg 10/02/18 10:00 10/02/18 09:30 Protonix Iv IVPUSH 40 mg DAILY BERNY Administration Potassium Chloride 40 meq 10/02/18 10:15 K-Dur - PO 10/02/18 10:16 ONCE ONE ASSESSMENT/PLAN: 27 yof with Pmhx of GERD, gastric sleeve 2015 admitted with nausea, vomiting, in the setting of having burbon/pork/marihuana -Intractable nausea/vomiting, cyclical vomiting from cannabis use, vs mild gastritis from ETOH vs food poisoning -Anemia, suspect from hemodilution (was dehydrated on admission) -GERD -Gastric sleeve 2015 Plan: tolerating liquids, advance to solids. Start PPI, d/c IVF. repeat h/h this afternoon. Follow up official CT A/P read. Suspect patient has underlying anemia, was hemoconcentrated on admission. Will need iron panel/GI follow up D/c later today if tolerating diet well and h/h stable with outpatient GI follow up Plan discussed with patient and nursing in detail, all questions answered. Visit type - Emergency Visit Emergency Visit: Yes ED Registration Date: 10/01/18 Care time: The patient presented to the Emergency Department on the above date and was hospitalized for further evaluation of their emergent condition. - New Patient This patient is new to me today: Yes Date on this admission: 10/02/18 - Critical Care Critical Care patient: No - Discharge Referral Referred to [facility] No
[2018-10-02] MEDS ORDERED: POTASSIUM CHLORIDE TABS 20 MEQ TABLET.ER (FP) PO ONE ×2 (10:15→16:15)
[2018-10-02 12:42] LABS: HEMATOCRIT 32.6 % (32.4-45.2); MCH 24.5 pg (25.7-33.7); MCHC 30.7 g/dl (32.0-36.0); MEAN CELL VOLUME 79.7 fl (80-96); MEAN PLT VOLUME 11.1 fl (7.5-11.1); PLATELET COUNT 182 K/MM3 (134-434); RBC 4.09 M/mm3 (3.60-5.2); RDW 19.2 % (11.6-15.6); WHITE BLOOD COUNT 4.8 K/mm3 (4.0-10.0)
--- NOTE | 2018-10-02 14:44 | DS ---
Physical Exam: SUBJECTIVE: Patient seen and examined, tolerating diet well, no further nausea/ vomiting or abdominal pain. eager to go home. No dark or bloody stools. OBJECTIVE: Vital Signs Period Temp Pulse Resp BP Sys/Johns Pulse Ox Last 24 Hr 97.5 F-98.5 F 63-79 16-20 92-112/44-72 96-98 PHYSICAL EXAM GENERAL: The patient is awake, alert, and fully oriented, in no acute distress. HEAD: Normal with no signs of trauma. EYES: PERRL, extraocular movements intact, sclera anicteric, conjunctiva clear. ENT: Ears normal, nares patent, oropharynx clear without exudates, moist mucous membranes. NECK: Trachea midline, full range of motion, supple. LUNGS: Breath sounds equal, clear to auscultation bilaterally, no wheezes, no crackles, no accessory muscle use. HEART: Regular rate and rhythm, S1, S2 ABDOMEN: Soft, nontender, nondistended, normoactive bowel sounds, no guarding, no rebound, no hepatosplenomegaly, no masses. EXTREMITIES: 2+ pulses, warm, well-perfused, no edema. NEUROLOGICAL: Cranial nerves II through XII grossly intact. Normal speech, gait not observed. PSYCH: Normal mood, normal affect. SKIN: Warm, dry, normal turgor, no rashes or lesions noted. LABS Laboratory Results - last 24 hr 10/01/18 10/01/18 10/01/18 13:06 13:06 13:15 WBC RBC Hgb Hct MCV MCH MCHC RDW Plt Count MPV Absolute Neuts (auto) Neutrophils % Neutrophils % (Manual) 86.3 H Band Neutrophils % 3.9 Lymphocytes % Lymphocytes % (Manual) 4.9 L Monocytes % Monocytes % (Manual) 4 Eosinophils % Eosinophils % (Manual) 0.0 Basophils % Basophils % (Manual) 0.0 Myelocytes % (Man) 0 Promyelocytes % (Man) 0 Blast Cells % (Manual) 0 Nucleated RBC % Metamyelocytes 0 Hypochromia 0 Platelet Estimate Normal Platelet Comment Present Polychromasia 1+ Poikilocytosis 1+ Anisocytosis 1+ Microcytosis 1+ Macrocytosis 0 Spherocytes 2+ Tear Drop Cells 2+ Ovalocytes 2+ Acanthocytes (Spur) 1+ Rouleaux 1+ PT with INR INR PTT (Actin FS) Sodium Potassium Chloride Carbon Dioxide Anion Gap BUN Creatinine Creat Clearance w eGFR Random Glucose Lactic Acid Calcium Phosphorus Magnesium Total Bilirubin AST ALT Alkaline Phosphatase Total Protein Albumin Urine Color Ltyellow Urine Appearance Clear Urine pH 6.0 Ur Specific Galva 1.028 Urine Protein 1+ H Urine Glucose (UA) 1+ H Urine Ketones 2+ H Urine Blood 2+ H Urine Nitrite Negative Urine Bilirubin Negative Urine Urobilinogen Negative Ur Leukocyte Esterase Negative Urine WBC (Auto) 1 Urine RBC (Auto) None Ur Epithelial Cells Rare Urine Mucus Few Urine HCG, Qual Negative Opiates Screen Methadone Screen Barbiturate Screen Phencyclidine Screen Ur Amphetamines Screen MDMA (Ecstasy) Screen Benzodiazepines Screen Cocaine Screen U Marijuana (THC) Screen Blood Type Antibody Screen 10/01/18 10/01/18 10/01/18 14:15 14:15 14:15 WBC RBC Hgb Hct MCV MCH MCHC RDW Plt Count MPV Absolute Neuts (auto) Neutrophils % Neutrophils % (Manual) Band Neutrophils % Lymphocytes % Lymphocytes % (Manual) Monocytes % Monocytes % (Manual) Eosinophils % Eosinophils % (Manual) Basophils % Basophils % (Manual) Myelocytes % (Man) Promyelocytes % (Man) Blast Cells % (Manual) Nucleated RBC % Metamyelocytes Hypochromia Platelet Estimate Platelet Comment Polychromasia Poikilocytosis Anisocytosis Microcytosis Macrocytosis Spherocytes Tear Drop Cells Ovalocytes Acanthocytes (Spur) Rouleaux PT with INR 13.10 H INR 1.11 H PTT (Actin FS) 25.7 Sodium Potassium Chloride Carbon Dioxide Anion Gap BUN Creatinine Creat Clearance w eGFR Random Glucose Lactic Acid 1.6 Calcium Phosphorus Magnesium Total Bilirubin AST ALT Alkaline Phosphatase Total Protein Albumin Urine Color Urine Appearance Urine pH Ur Specific Galva Urine Protein Urine Glucose (UA) Urine Ketones Urine Blood Urine Nitrite Urine Bilirubin Urine Urobilinogen Ur Leukocyte Esterase Urine WBC (Auto) Urine RBC (Auto) Ur Epithelial Cells Urine Mucus Urine HCG, Qual Opiates Screen Methadone Screen Barbiturate Screen Phencyclidine Screen Ur Amphetamines Screen MDMA (Ecstasy) Screen Benzodiazepines Screen Cocaine Screen U Marijuana (THC) Screen Blood Type O POSITIVE Antibody Screen Negative 10/01/18 10/02/18 10/02/18 21:40 06:00 06:00 WBC 6.5 RBC 3.94 Hgb 9.7 L Hct 31.1 L MCV 79.0 L MCH 24.7 L MCHC 31.3 L RDW 19.3 H Plt Count 180 D MPV 10.8 Absolute Neuts (auto) 5.0 Neutrophils % 76.8 Neutrophils % (Manual) Band Neutrophils % Lymphocytes % 15.5 D Lymphocytes % (Manual) Monocytes % 7.2 D Monocytes % (Manual) Eosinophils % 0.1 Eosinophils % (Manual) Basophils % 0.4 Basophils % (Manual) Myelocytes % (Man) Promyelocytes % (Man) Blast Cells % (Manual) Nucleated RBC % 0 Metamyelocytes Hypochromia Platelet Estimate Platelet Comment Polychromasia Poikilocytosis Anisocytosis Microcytosis Macrocytosis Spherocytes Tear Drop Cells Ovalocytes Acanthocytes (Spur) Rouleaux PT with INR INR PTT (Actin FS) Sodium 140 Potassium 3.4 L Chloride 109 H Carbon Dioxide 21 Anion Gap 10 BUN 7 Creatinine 0.7 Creat Clearance w eGFR > 60 Random Glucose 75 Lactic Acid Calcium 8.4 L Phosphorus 3.4 Magnesium 2.1 Total Bilirubin 0.4 AST 20 ALT 22 Alkaline Phosphatase 60 Total Protein 6.7 Albumin 3.2 L Urine Color Urine Appearance Urine pH Ur Specific Galva Urine Protein Urine Glucose (UA) Urine Ketones Urine Blood Urine Nitrite Urine Bilirubin Urine Urobilinogen Ur Leukocyte Esterase Urine WBC (Auto) Urine RBC (Auto) Ur Epithelial Cells Urine Mucus Urine HCG, Qual Opiates Screen Negative Methadone Screen Negative Barbiturate Screen Negative Phencyclidine Screen Negative Ur Amphetamines Screen Negative MDMA (Ecstasy) Screen Negative Benzodiazepines Screen Negative Cocaine Screen Negative U Marijuana (THC) Screen Positive A* Blood Type Antibody Screen 10/02/18 12:20 WBC 4.8 RBC 4.09 Hgb 10.0 L Hct 32.6 MCV 79.7 L MCH 24.5 L MCHC 30.7 L RDW 19.2 H Plt Count 182 MPV 11.1 Absolute Neuts (auto) Neutrophils % Neutrophils % (Manual) Band Neutrophils % Lymphocytes % Lymphocytes % (Manual) Monocytes % Monocytes % (Manual) Eosinophils % Eosinophils % (Manual) Basophils % Basophils % (Manual) Myelocytes % (Man) Promyelocytes % (Man) Blast Cells % (Manual) Nucleated RBC % Metamyelocytes Hypochromia Platelet Estimate Platelet Comment Polychromasia Poikilocytosis Anisocytosis Microcytosis Macrocytosis Spherocytes Tear Drop Cells Ovalocytes Acanthocytes (Spur) Rouleaux PT with INR INR PTT (Actin FS) Sodium Potassium Chloride Carbon Dioxide Anion Gap BUN Creatinine Creat Clearance w eGFR Random Glucose Lactic Acid Calcium Phosphorus Magnesium Total Bilirubin AST ALT Alkaline Phosphatase Total Protein Albumin Urine Color Urine Appearance Urine pH Ur Specific Galva Urine Protein Urine Glucose (UA) Urine Ketones Urine Blood Urine Nitrite Urine Bilirubin Urine Urobilinogen Ur Leukocyte Esterase Urine WBC (Auto) Urine RBC (Auto) Ur Epithelial Cells Urine Mucus Urine HCG, Qual Opiates Screen Methadone Screen Barbiturate Screen Phencyclidine Screen Ur Amphetamines Screen MDMA (Ecstasy) Screen Benzodiazepines Screen Cocaine Screen U Marijuana (THC) Screen Blood Type Antibody Screen CT A/P Status post gastric bypass procedure No obstruction or inflammatory change in the region The liver, spleen, adrenal glands and pancreas are unremarkable. 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 There is no abdominal aortic aneurysm. Appendix not identified. Surgical clips noted in the region There is a 2.5 cm cystic structure located possibly within the small bowel seen best on image #126 of series #3. Possible mesenteric type cyst possible left adnexal cyst There are no fluid collections in the abdomen or pelvis. There is no bowel obstruction. The urinary bladder and uterus are unremarkable. IMPRESSION: Status post cholecystectomy. Status post appendectomy. Possible small bowel versus left adnexal cyst as described. Consider pelvic sonography and additional evaluation as clinically warranted Status post gastric sleeve or bypass type procedure HOSPITAL COURSE: Date of Admission:10/01/18 Date of Discharge: 10/02/18 Minutes to complete discharge: 35 Discharge Summary Reason For Visit: NAUSEA, VOMITING Current Active Problems Nausea and vomiting (Acute) Hospital Course: 27 yof with Pmhx of GERD, gastric sleeve 2016 admitted with nausea, vomiting, in the setting of having burbon/pork/marihuana. Her symptoms rapidly resolved. She was tolerating diet well with no concerning. She had a CT scan Abdomen/ pelvis that was negative for acute concerns. Her hemoglobin dropped to 9.7 from 11.4 likely from aggressive hydration. Her repeat h/h was stable at 10 with no concerns for ongoing bleed or hemodynamic instability. She is advised outpatient gastroenterology follow up and interval CBC monitoring. She was also counseled on alcohol/marihuana cessation. Condition: Good - Instructions Diet, Activity, Other Instructions: You are strongly encouraged to avoid alcohol and marihuana. Follow up with your doctor in 1 week or can contact medical clinic for follow up appointment. Information provided. Advise follow up with [facility] You were found with anemia and recommend follow up with your doctor and referral to a fish filleter. CBC (blood work ) in 1 week with your doctor. You will need iron studies and further testing including endoscopy as indicated. You were incidentally found with a possible adnexal cyst (in your belly), please discuss with your doctor about transvaginal/Pelvic ultrasound and follow up. If you notice any new belly pain, nausea, vomiting, dark or bloody stools or vomitus or any new concerns, please call 911 or come to ED. Referrals: Inder Kuhn MD [Staff Physician] - 1 Week Disposition: HOME - Home Medications Comprehensive Discharge Medication List: Ambulatory Orders Omeprazole 20 mg PO DAILY PRN 7 Days tab. 10/02/18 This patient is new to me today: Yes Date on this admission: 10/02/18 Emergency Visit: Yes ED Registration Date: 10/01/18 Care time: The patient presented to the Emergency Department on the above date and was hospitalized for further evaluation of their emergent condition. Critical Care patient: No - Discharge Referral Referred to [facility] No
[2018-10-02 17:12] VITALS: BP 111/67; PULSE 72; TEMP 99.4
== END 2018-10-02 17:12 | disposition home or self-care (01) ==
LOC: JER 12:23 → JERBED 19:54 → J8W 10-02 03:24
PROVIDERS: ADMIT Internal Medicine; ATTEND Hospitalist
PROC: 3E033NZ Introduction of Analgesics, Hypnotics, Sedatives into Peripheral Vein, Percutaneous Approach (ICD-10-PCS; principal; 2018-10-01)
PROC: 3E033GC Introduction of Other Therapeutic Substance into Peripheral Vein, Percutaneous Approach (ICD-10-PCS; 2018-10-01)
PROC: 3E023GC Introduction of Other Therapeutic Substance into Muscle, Percutaneous Approach (ICD-10-PCS; 2018-10-01)
DX: R11.2 Nausea with vomiting, unspecified (principal); R10.13 Epigastric pain; R10.10 Upper abdominal pain, unspecified; K21.9 Gastro-esophageal reflux disease without esophagitis; Z98.84 Bariatric surgery status
CPT/HCPCS: 36415; 74177-TC; 80053; 80307; 81003; 81015; 83605; 83690; 83735; 84100; 84703; 85025; 85027; 85610; 85730; 86850; 86900; 86901; 93005; 93010; 99285-25; G0378; J0131; J7030

== ENCOUNTER 2021-09-30 21:01 | Emergency (ER) | payer OTHER ==
[2021-09-30 21:20] VITALS: BP 115/79; PULSE 69; TEMP 98.6; BMI 33.5
[2021-09-30] MEDS ORDERED: ACETAMINOPHEN 325 MG TABLET (FP) PO ONE (22:02)
[2021-09-30] MEDS ORDERED: BUPIVACAINE HCL/PF 0.5% (5 MG/ML) 30 ML VIAL IJ ONE (22:13)
== END 2021-09-30 23:11 | disposition home or self-care (01) ==
LOC: JER 21:01
DX: K08.89 Other specified disorders of teeth and supporting structures (principal)
CPT/HCPCS: 99283-25

== ENCOUNTER 2021-11-03 22:47 | Emergency (ER) | payer OTHER ==
[2021-11-03 22:59] VITALS: BP 107/72; PULSE 70; TEMP 97.9; BMI 30.9
[2021-11-03] MEDS ORDERED: BUPIVACAINE HCL/PF 0.5% (5 MG/ML) 30 ML VIAL IJ ONE (23:33)
[2021-11-03] MEDS ORDERED: BUPIVACAINE HCL/PF 0.5% (5MG/ML) 10 ML VIAL ONE (23:34)
[2021-11-04] MEDS ORDERED: IBUPROFEN 600 MG TABLET (FP) PO ONE ×2 (00:07→00:19)
== END 2021-11-04 00:47 | disposition home or self-care (01) ==
LOC: JER 22:47
DX: K08.89 Other specified disorders of teeth and supporting structures (principal)
CPT/HCPCS: 99283-25

== ENCOUNTER 2024-01-16 04:53 | Emergency (ER) | payer OTHER ==
[2024-01-16 04:59] VITALS: PULSE 69; RESP 20; TEMP 98; BMI 31.7
[2024-01-16 05:04] VITALS: BP 128/57
[2024-01-16] MEDS ORDERED: HALOPERIDOL LACTATE 5 MG/ML ONE (05:15)
[2024-01-16] MEDS: HALOPERIDOL LACTATE 5 MG/ML IM ONE (05:18)
[2024-01-16] MEDS: morphine CARPU-JECT 2 MG/1 ML DISP.SYRIN IVPUSH ONE (05:22)
[2024-01-16] MEDS ORDERED: ONDANSETRON 4 MG/2 ML VIAL ONE (05:37)
[2024-01-16] MEDS: ONDANSETRON 4 MG/2 ML VIAL IVPUSH ONE (05:40)
[2024-01-16] MEDS: ONDANSETRON *ODT* 4 MG TABLET SL ONE (05:41)
[2024-01-16 06:19] LABS: EOS % 0.4 % (0-4.5); HEMOGLOBIN 9.2 GM/dL (10.7-15.3); LYMPH % 20.6 % (8-40); MCH 21.1 pg (25.7-33.7); MCHC 29.5 g/dl (32.0-36.0); MEAN CELL VOLUME 71.5 fl (80-96); MONO % 6.9 % (3.8-10.2); NEUT % 70.1 % (42.8-82.8); PLATELET COUNT 181 10^3/uL (134-434); RBC 4.34 M/mm3 (3.60-5.2)
[2024-01-16 06:28] LABS: POTASSIUM 3.4 mmol/L (3.5-5.1)
[2024-01-16 06:30] LABS: ALBUMIN 3.7 g/dl (3.4-5.0); CALCIUM 8.8 mg/dL (8.5-10.1)
[2024-01-16 06:33] LABS: CREATININE 0.9 mg/dL (0.55-1.3)
[2024-01-16 06:35] LABS: BILIRUBIN,TOTAL 0.3 mg/dL (0.2-1); TOT PROT 7.8 g/dl (6.4-8.2)
[2024-01-16] MEDS ORDERED: MAGNESIUM SULFATE IN WATER 2 GM/50 ML IVPB IVPB ONE (06:38)
[2024-01-16] MEDS: MAGNESIUM SULF 50% (8.12 MEQ/2 ML-1 GM VIAL) IVPB ONE (06:44)
[2024-01-16 12:42] LABS: ANISOCYTOSIS 3+; MACROCYTOSIS 0
== END 2024-01-16 07:13 | disposition home or self-care (01) ==
LOC: JER 04:53
PROC: 3E033GC Introduction of Other Therapeutic Substance into Peripheral Vein, Percutaneous Approach (ICD-10-PCS; principal; 2024-01-16)
PROC: 3E033GC Introduction of Other Therapeutic Substance into Peripheral Vein, Percutaneous Approach (ICD-10-PCS; 2024-01-16)
PROC: 3E023GC Introduction of Other Therapeutic Substance into Muscle, Percutaneous Approach (ICD-10-PCS; 2024-01-16)
DX: R10.84 Generalized abdominal pain (principal); R11.2 Nausea with vomiting, unspecified
CPT/HCPCS: 36415; 80053; 83690; 84703; 85025; 99284-25